=== PATIENT | female | born 1950 | race Two or more races ===

== ENCOUNTER 2016-09-08 09:35 | Emergency (ER) | payer MEDICARE ==
[~2016-09-08] VITALS: Ht 152.4 cm; Wt 68.0 kg
[~2016-09-08 09:35] MED LIST: BENA5TAB5 PO
[2016-09-08 11:30] VITALS: BP 160/90
== END 2016-09-08 13:09 | disposition home or self-care (01) ==
LOC: EDBD 09:35 → ER 09:38
DX: R07.89 Other chest pain (principal); I10 Essential (primary) hypertension; Z85.3 Personal history of malignant neoplasm of breast; V49.59XA Passenger injured in collision with other motor vehicles in traffic accident, initial encounter; Y93.89 Activity, other specified; Y99.8 Other external cause status; Y92.410 Unspecified street and highway as the place of occurrence of the external cause
CPT/HCPCS: 36415; 71020; 84484; 93005